=== PATIENT | male | born 1955 | race Caucasian/White ===

== ENCOUNTER 2019-02-09 07:35 | Day surgery (SDC) | payer OTHER ==
[2019-02-09] VITALS (21 sets, daily range): BP systolic 82–124; BP diastolic 45–85; PULSE 44–62; RESP 14–25; Ht 172.7 cm; Wt 84.4 kg
[~2019-02-09] VITALS: Ht 172.7 cm; Wt 84.4 kg
--- NOTE | 2019-02-09 07:01 | HPN ---
Date/Time of Note Date/Time of Note DATE: 02/09/19 TIME: 07:00 Interval H&P Admission Note Pt. seen H&P reviewed: No system changes SHAYAN JOAQUIN MD Feb 09, 2019 07:01
[~2019-02-09 07:35] MED LIST: ACETAMINOPHEN 500 MG TAB PO ONE
[2019-02-09] MEDS ORDERED: OMEP20CA16 PO (08:02)
[2019-02-09] MEDS ORDERED: ACETAMINOPHEN 500 MG TAB ONE (08:14)
[2019-02-09] MEDS ORDERED: METOCLOPRAMIDE 10 MG INJ ONE (08:14)
--- NOTE | 2019-02-09 08:18 | PREAC ---
Date/Time of Note Date/Time of Note DATE: 02/09/19 TIME: 08:15 Anesthesia Eval and Record Evaluation Time Pre-Procedure Interview DATE: 02/09/19 TIME: 08:15 Age 63 Sex male NPO: 8 hrs Preoperative diagnosis L knee tear lateral meniscus Planned procedure L knee arthroscopy partial lateral meniscectomy Past Medical History Past Medical History: Includes (BPH) Cardio: Dyslipidemia GI: GERD (under control with meds) Surgery & Anesthesia Issues Other issues (pt had urinary retention post hernia surgery r/t anesthesia) Meds Anticoagulation: No Beta Marvin within 24 hr: No Reason Beta Marvin not given: Pt. not on B-Marvin Reported Medications Omeprazole* (Omeprazole*) 20 Mg Capsule.dr, 20 MG PO DAILY, #30 CAP 02/09/19 Current Medications Acetaminophen (Tylenol Tab) 1,000 mg ONCE ONCE PO ; Start 02/09/19 at 07:00; Stop 02/09/19 at 07:01; Status UNV Meds reviewed: Yes Allergies Coded Allergies: Penicillins (Verified Allergy, Unknown, 02/09/19) Allergies Reviewed: Yes Labs/Studies Labs Reviewed: Reviewed by anesthesiologist test: N/A Pre-procedure Exam Airway: Adequate mouth opening, Adequate thyromental dist Mallampati: Mallampati II Teeth: Normal Lung: Normal Heart: Normal ASA Physical Status ASA physical status: 2 Emergency: None Planned Anesthetic General/MAC: LMA Pre-operative Attestations Prior to commencing anesthesia and surgery, the patient was re-evaluated, there was verification of: *The patient's identity *The results of appropriate recent lab work and preoperative vital signs *The above evaluation not changing prior to induction *Anesthetic plan, risk benefits, alternative and complications discussed with patient/family; questions answered; patient/family understands, accepts and wishes to proceed. REAL KHOURY Feb 09, 2019 08:18
[2019-02-09] MEDS ORDERED: OXYCODONE/ACETAMINOPHEN (5/325) TAB PO PRN ×4 (08:30→11:30)
[2019-02-09] MEDS ORDERED: HYDROmorphONE 1 MG/5 ML IV SYRINGE IV PRN ×3 (08:30)
[2019-02-09] MEDS ORDERED: ONDANSETRON 4 MG INJ IV PRN ×2 (08:30→11:30)
[2019-02-09] MEDS ORDERED: METOCLOPRAMIDE 10 MG INJ IV ONE (08:30)
[2019-02-09] MEDS ORDERED: LABETALOL HCL 20MG INJ IV PRN (08:30)
[2019-02-09] MEDS ORDERED: FENTAnyl 50 MCG/ML VIAL IV PRN ×2 (08:30)
[2019-02-09] MEDS ORDERED: MEPERIDINE 25 MG INJ IV PRN (08:30)
[2019-02-09] MEDS ORDERED: ALBUTEROL 0.083% (NEB) 2.5 MG/3 ML AMP HHN PRN (08:30)
[2019-02-09] MEDS ORDERED: DIPHENHYDRAMINE 50 MG INJ IV PRN (08:30)
[2019-02-09] MEDS ORDERED: morphine 2 MG INJ IV PRN ×3 (08:30→11:30)
[2019-02-09] MEDS ORDERED: ROPIVACAINE 0.5 % 30 ML VIAL ONE (08:39)
[2019-02-09] MEDS ORDERED: ONDANSETRON 4 MG INJ ONE (08:48)
[2019-02-09] MEDS ORDERED: MAGNESIUM SULFATE 1 GM/D5W 100 ML ONE (08:48)
[2019-02-09] MEDS ORDERED: PROPOFOL 40 ML ONE ×3 (08:48→10:10)
[2019-02-09] MEDS ORDERED: LIDOCAINE 2% (SDV) 5 ML INJ ONE (08:48)
[2019-02-09] MEDS ORDERED: MIDAZOLAM 1 MG/ML 2 ML INJ ONE (08:48)
[2019-02-09] MEDS ORDERED: CEFAZOLIN 1 GM INJ ONE (08:49)
[2019-02-09] MEDS ORDERED: FAMOTIDINE 20 MG INJ ONE (08:49)
[2019-02-09] MEDS ORDERED: KETAMINE (50 MG/ML) 10 ML VIAL ONE (08:55)
[2019-02-09] MEDS ORDERED: METOPROLOL 5 MG INJ ONE (10:09)
[2019-02-09] MEDS ORDERED: KETOROLAC 30 MG INJ ONE (11:05)
--- NOTE | 2019-02-09 11:20 | PAC ---
Date/Time of Note Date/Time of Note DATE: 02/09/19 TIME: 11:19 Post-Anesthesia Notes Post-Anesthesia Note Last documented vital signs Vital Signs Date Temp Pulse Resp B/P Pulse Ox O2 O2 Flow FiO2 Time (MAP) Delivery Rate 02/09/19 97.3 98.9 61 62 16 17 118/81 98 99 face 07:50 111 (93) 83/ mask 8L 4 46 Activity: WNL Respiratory function: WNL Cardiovascular function: WNL Mental status: Baseline Pain reasonably controlled: Yes Hydration appropriate: Yes Nausea/Vomiting absent: Yes REAL KHOURY Feb 09, 2019 11:20
[2019-02-09] MEDS ORDERED: SOD CHLORIDE 0.9% 1,000 ML IV SCH (11:25)
--- NOTE | 2019-02-09 11:27 | OPPN ---
Date/Time of Note Date/Time of Note DATE: 02/09/19 TIME: 11:26 Operative Report Preoperative Diagnosis Left knee meniscal tear Postoperative Diagnosis left knee lateral mensical tear Operation/Procedure Performed arthroscopy of the left knee with partial lateral meniscectomy, chondroplasty Surgeon see signature line assistant manager airside operations Shwetha Brady PA-C Anesthesia: general Estimated blood loss: minimal Transfusion Required none Specimen none Grafts/Implants none Complications none SHAYAN JOAQUIN MD Feb 09, 2019 11:27
--- NOTE | 2019-02-09 12:11 | OPR ---
DATE OF OPERATION: 02/09/2019 PREOPERATIVE DIAGNOSES: 1. Tear of lateral meniscus, left knee. 2. Status post ACL reconstruction in the past. POSTOPERATIVE DIAGNOSES: 1. Complex tear lateral meniscus, left knee. 2. Status post ACL reconstruction with intact graft. 3. 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 4. Chondromalacia grade II of the patella. 5. Multiple chondral loose bodies greater than 1 cm. OPERATION PERFORMED: 1. Arthroscopy, left knee. 2. Partial lateral meniscectomy. 3. Removal of multiple chondral loose bodies. 4. Chondroplasty patellofemoral joint. SURGEON: Shayan Cole MD EXPERIMENTAL PLASTICS FABRICATOR: SHARON Chavez ANESTHESIA: General. TOURNIQUET TIME: Zero. DESCRIPTION OF PROCEDURE: The patient taken to the operating room and placed in supine position. Sa tisfactory general anesthesia was administered, 2 grams Ancef intravenously. The left knee prepped a nd draped in the usual manner. Exam under anesthesia revealed full range of motion, AP drawer and La chman 1+, pivot shift negative. No varus-valgus instability. Standard arthroscopic portals were used. Undersurface of the patella, some grade II chondromalacia t rochlea, grade I chondromalacia. Medial synovial shelf was absent. Lateral gutter had no loose bodi es. However, there was evidence of significant tearing of the lateral meniscus. Lateral compartment was entered. There was some grade III chondromalacia and some kissing lesions with grade 4 chondrom alacia on the lateral aspect of the lateral joint line. The lateral meniscus anterior horn had a fla p tear. There was very little meniscus left centrally. There was none in front of the popliteus. Th e meniscus was reasonably intact with some tearing posterior horn. Anterior cruciate had some frayin g, but generally was intact. Posterior cruciate was intact at origins and insertions. Medial compar tment was entered, smooth and glistening. Medial meniscus was normal. Probe was inserted. The medi al meniscus was palpated looked entirely intact. Posterior cruciate was palpated and was intact. Th e anterior cruciate had some lateral laxity, but reasonably intact. Lateral meniscus tear was evalua jesusita. Using curved and straight baskets, it was saucerized from the anterior horn flap which was cut, and then removed with a grasper. The meniscus in front of the popliteus was basically gone; we debr ided the entire meniscal rim. Centrally that was left and then posteriorly we cut it back to a stabl e rim. The chondral loose bodies were removed with a grasper; 3 were removed. Chondroplasty perform ed along the lateral compartment. Chondroplasty then performed along the patella. The knee was irri gated clear. Wounds closed with 3-0 black nylon and Steri-Strips. Compression dressing was applied after the knee was infiltrated with 0.5% ropivacaine. Interprocedure sponge and needle count was cor rect. Patient tolerated procedure well. MICROFILMER ORTHOPEDIC SURGEON: During the procedure, roofer assistant was used at my request. The roofer assistant helped with manipulating the knee, manipulating the arthroscope and assisting in the meniscectomy. Without a skilled roofer assistant, this could not have done and this should be compensated appropriately. Dictated By: SHAYAN MARIA/HERB Conf#: [id number] DID#: [id number]
== END 2019-02-09 14:16 | disposition home or self-care (01) ==
LOC: SDS 07:35
PROVIDERS: ATTEND Orthopaedic Surgery
DX: S83.272D Complex tear of lateral meniscus, current injury, left knee, subsequent encounter (principal); X58.XXXD Exposure to other specified factors, subsequent encounter; M94.212 Chondromalacia, left shoulder; M23.42 Loose body in knee, left knee
CPT/HCPCS: 29881; J0690; J1885; J2250; J2405; J2765; J2795; J3475